=== PATIENT | male | born 1965 | race Caucasian/White ===

== ENCOUNTER 2023-04-15 08:07 | Outpatient (REF) | payer OTHER, SELFPAY ==
--- NOTE | 2023-04-15 08:14 | EMG_ITS ---
Left median and ulnar motor and sensory studies were performed. Left radial sensory study was performed and left median and lateral antecubital brachial sensory studies were performed. Needle examination was performed. IMPRESSION: 1. [id number] left ulnar neuropathy across cubital tunnel. 2. Mild to moderate left median neuropathy across carpal tunnel. MD HANNA Garcia/HERON / [id number]
== END 2023-04-15 08:08 | disposition home or self-care (01) ==
LOC: HO.NEURO 08:07
PROVIDERS: PCP Internal Medicine; Visit Provider Physician Assistant
DX: G56.02 Carpal tunnel syndrome, left upper limb (principal)
CPT/HCPCS: 95886; 95910